=== PATIENT | female | born 1945 | race Caucasian/White ===

== ENCOUNTER 2023-08-01 10:25 | Day surgery (SDC) | payer OTHER, SELFPAY ==
[2023-08-01] VITALS (24 sets, daily range): BP systolic 143–175; BP diastolic 47–70; BMI 40.2
[2023-08-01 10:59] LABS: Glucose - Point of Care 165 mg/dl (70-99)
--- NOTE | 2023-08-01 12:03 | W.PN.CARDCBS ---
Today's Communication / Plan
-
LHC today
Impression / Plan
-
This is a summary, please see scanned cardiology consultation
PCP: Alondra Meraz MD
JARRED: Dr. Lozano
78yo WF h/o HTN, HLD, DM2, CKD3b, CHF, chronic LE lymphedema, CAD, remote DVT post THR. She presents to ER with progressive dyspnea, she was recently admitted 05/2023 with dyspnea, NSTEMI, Pneumonia (cath not done at that time). She had outpt
Lexiscan 07/18/23 high risk study suggestive of multivessel CAD. Echo with preserved EF, no sig WMA. She was medically treated with IV lasix, bipap, pulmonary consulted steroids/nebs, troponin mildly elevated but lower than feb admission (peak only
83). She is transferred today for [facility]. She denies ever having chest pain
Impression:
Acute hypoxic respiratory failure/RLL pneumonia
NSTEMI/Abnormal NST
HTN
HLD
DM2
acute on chronic diastolic HFpEF
chronic Lymphedema
[id number] (baseline Cr 1.3-1.7 2022)
Chronic anemia in CKD
remote DVT after THR
Pneumonia 05/2023
Morbid obesity BMI 40
Plan:
NSTEMI - C today, plan post cath
continue ASA, statin, BB, amlodipine
will add Plavix if PCI
Acute hypoxic respiratory failure/Pneumonia - RA sats 97%, continue abx complete 7 day course (cefdinir 300 daily)
Acute on chronic diastolic HFpEF - BNP 319 on admission, diuresed well with lasix 60iv bid, nephrology adjusting daily based on Cr
continue metoprolol, lisinopril on hold for elevated Cr
Acute on [id number] - Cr 1.93 today, will limit nephrotoxic medications
trend post cath
DM2 - A1c 7.1%, SSI while in hospital, continue glargine 20u daily
Progress Note - [employer]
Subjective
Date of Service: August 01, 2023
no cp, sob
Objective
Vital Signs and I&O:
Vital Signs
Temp Pulse Resp BP Pulse Ox
97.8 F 72 16 169/49 96
08/01/23 11:30 08/01/23 11:30 08/01/23 11:30 08/01/23 11:30 08/01/23 11:30
Vital Signs
Temp Pulse Resp BP Pulse Ox
97.8 F 72 16 169/49 96
08/01/23 11:30 08/01/23 11:30 08/01/23 11:30 08/01/23 11:30 08/01/23 11:30
Physical Exam
Physical Exam
NAD< AOX3
S1, S2, RRR, II/IV RAMON
bibasilar rales, no wheeze
SNTND bsx4
b/l LE edema with rosemarie wraps in place
[2023-08-01] MEDS: OMNICEF 300 MG PO (17:18)
--- NOTE | 2023-08-01 18:04 | ITS.CL.CATH ---
[employer] - Catheterization
Cardiac Catheterization
Procedure Report:
RIGHT AND LEFT HEART CATHETERIZATION
Date of Procedure: August 01, 2023
Primary Care Physician: Dr. Alondra Meraz
Primary Industrial Spray Painter: Dr. Leny Carbajal
Procedures performed:
1: Coronary angiography
2: Left ventricular hemodynamic assessment
3: Right heart catheterization
INDICATION: The patient is a 78-year-old woman with a past medical history significant for hypertension, insulin-dependent diabetes, sever renal insufficiency (creat around 2.0), obesity, severe lower extremity lymphedema, and to hospitalizations
for shortness of breath. In May she was admitted and ruled in for a small non-ST elevation TN. Echo at that time showed normal LV systolic function with mild aortic valvular stenosis and mild mitral regurgitation. She was readmitted with
increasing shortness of breath and this admission did not have elevated cardiac enzymes or elevated BNP suggesting congestive heart failure. She has never had typical angina. Nuclear perfusion study performed on July 17 suggested multivessel
ischemia with a summed stress score of 7. She is referred for cardiac catheterization. In light of her dyspnea and dramatic lower extremity swelling I we will also perform a right heart catheterization.
ACCESS: The patient was prepped and draped in usual sterile fashion. A 5 Romanian sheath was placed in the right radial artery using the Seldinger over the wire technique. A 6 Romanian sheath was then placed in the right common femoral vein using the
same technique.
HEMODYNAMIC FINDINGS (mmHg):
RA(a,v,m): 19, 15, 14
RV(s/d,EDP): 73/14, 16
PA(s/d/m): 72/28, 45
PCWP(a,v,m): 30, 33, 28 note: Post IV nitroglycerin PCWP(a,v,m): 20, 20, 19 and PCWP(a,v,m): 66/20, 37
LV(s/d,EDP): 169/11, 22
Ao(s/d,m): 158/62, 92
Oxygen Saturations (mg/dl):
PA: 65% on 2 L of oxygen by nasal cannula
LV: 95% on 2 L of oxygen by nasal cannula
Cardiac Output/Index (l/min / l/min/m2):
Estimated Grayson Method: 5.2 / 2.6
VALVE HEMODYNAMICS:
No significant aortic or mitral valve stenosis.
ANGIOGRAPHIC FINDINGS:
Single-plane Left Ventriculography in PARSON Projection: Not done.
Coronary Angiography:
Dominance: Right
Left Main: The left main is heavily calcified particularly in the distal portion involving the circumflex ostium. There is a smooth 40 to 50% distal left main. Small to medium caliber vessel.
Left Anterior Descending: The left anterior descending artery is heavily calcified in the proximal portion and in the mid vessel involving the takeoff of the major diagonal branch. There is moderate disease with a smooth 30 to 40% stenosis just
after the diagonal takeoff. The diagonal branch is a relatively large diffusely diseased vessel that has normal flow into small caliber major branches. These vessels are too small for surgical targets. The mid and distal LAD is widely patent with
only mild luminal irregularities and no high-grade disease.
Left Circumflex: The left circumflex is a medium caliber nondominant system that is diffusely diseased throughout with heavy calcification at the ostium making accurate angiographic assessment difficult. There appears to be a 60 to 70% true ostial
stenosis. The first obtuse marginal branch is a small caliber vessel that has diffuse moderate luminal irregularities but normal distal flow. The proximal circumflex has a calcific smooth 50 to 60% stenosis after the high OM1 takeoff. OM 2 is a
large-caliber vessel that has a 70 to 80% proximal stenosis with normal distal flow and a relatively large distal vessel. The circumflex terminates in a distal OM that is small to medium caliber widely patent with distal small vessel disease.
Right Coronary: The right coronary artery is a medium caliber dominant vessel that has a smooth 60% mid RCA stenosis. There is a medium caliber RV marginal branch that takes off at the acute margin that has a smooth ostial 50% stenosis and distally
supplies the distal apical septum. The posterior descending artery is a relatively small vessel that is widely patent. The posterior left ventricular branch has a 70% stenosis just after the takeoff of the PDA in the AV groove. The distal vessel
has 50% proximal disease jeopardizing flow into 1 major distal PLV branch that has normal flow.
Fluoroscopy Time (min): 3.9
Radiation Dose (mGy): 473
DAP (Gy.cm2): 30
Closure device: None. A TR band was applied for hemostasis at the right wrist. The femoral vein groin sheath will be pulled with manual pressure for hemostasis.
Complications: None.
ASSESSMENT:
1: Diffuse multivessel obstructive coronary disease. The distal left main certainly may be obstructive however this is not clearly flow-limiting. There is certainly obstructive disease in the circumflex territory especially in the large OM 2
however I do not feel this is approachable for percutaneous intervention given the distal left main and ostial circumflex disease. The distal right disease is also obstructive but in relatively small diffusely diseased vessels which would not be
readily amenable for PCI in this insulin-dependent diabetic.
2: Severely elevated pulmonary pressures in the setting of elevated left ventricular filling pressures.
3: Preserved cardiac output and index on medical therapy.
CONCLUSIONS and RECOMMENDATIONS:
1: Aggressive medical therapy for diffuse severe coronary artery disease, diabetes, hypertension, and chronic renal insufficiency. Given her multiple comorbidities especially with severe lymphedema, obesity, and severe renal insufficiency, I do not
think she is a reasonable surgical candidate but this could be considered if Dr. Lozano or Dr. Meraz disagreed. Given the fact that she has no angina I would favor medical therapy.
2: Close clinical follow-up as scheduled.
Andrew Killian M.D.
Copy to: Dr. Alondra Meraz
== END 2023-08-01 17:25 | disposition home or self-care (01) ==
LOC: CATH 10:25
PROVIDERS: ATTENDING PHYSICIAN Internal Medicine Interventional Cardiology; FAMILY PHYSICIAN Family Medicine
DX: I25.10 Atherosclerotic heart disease of native coronary artery without angina pectoris (principal); I89.0 Lymphedema, not elsewhere classified; I25.84 Coronary atherosclerosis due to calcified coronary lesion; I12.9 Hypertensive chronic kidney disease with stage 1 through stage 4 chronic kidney disease, or unspecified chronic kidney disease; Z79.4 Long term (current) use of insulin; E66.01 Morbid (severe) obesity due to excess calories; R06.02 Shortness of breath; I35.0 Nonrheumatic aortic (valve) stenosis; I25.2 Old myocardial infarction; R06.00 Dyspnea, unspecified; M79.89 Other specified soft tissue disorders; N18.9 Chronic kidney disease, unspecified; E11.22 Type 2 diabetes mellitus with diabetic chronic kidney disease
CPT/HCPCS: 82962; 93460; C1894